=== PATIENT | female | born 1955 | race Two or more races ===

== ENCOUNTER 2019-05-09 17:16 | Emergency (ER) | payer MEDICAID ==
[~2019-05-09] VITALS: Ht 162.6 cm; Wt 94.3 kg
[~2019-05-09 17:16] MED LIST: CIPR500T5 PO; HYDR-4354 PO; HYDR1TAB GT; IBUP-1955 PO; MELO7.5T12 PO
--- NOTE | 2019-05-09 17:50 | NUR ---
PT CAME TO ER FOR CHEST PAIN SINCE YESTERDAY THAT COMES AND GOES. PT HAS HX OF RHEUMATOID ARTHRITIS FOR 13 YEARS. AAOX4. PATIENT NOT IN ANY DISTRESS. NO SOB. BREATHING EVEN AND UNLABORED. AWAITING MD MCCARTHY. WILL CONTINUE TO MONITOR.
[2019-05-09] MEDS ORDERED: PIOG1TAB7 PO (17:54)
[2019-05-09] MEDS ORDERED: CALC-1237 PO (17:54)
[2019-05-09] MEDS ORDERED: LISI1TAB27 PO (17:54)
[2019-05-09] MEDS ORDERED: LEFL20TA18 PO (17:54)
[2019-05-09 17:56] LABS: BASOPHILS % (AUTO) 0.3 % (0.0-2.0); EOSINOPHILS % (AUTO) 1.5 % (0.0-6.0); HEMATOCRIT 44 % (33-45); LYMPHOCYTES # (AUTO) 1.5 /CMM (0.8-4.8); LYMPHOCYTES % (AUTO) 26.5 % (20.0-44.0); MEAN CORPUSCULAR HGB CONC 32 g/dl (31.0-36.0); MEAN CORPUSCULAR VOLUME 82 fL (82-100); MONOCYTES # (AUTO) 0.7 /CMM (0.1-1.30); MONOCYTES % (AUTO) 12.1 % (2.0-12.0); NEUTROPHILS # (AUTO) 3.3 /CMM (1.8-8.9); NEUTROPHILS % (AUTO) 59.6 % (43.0-81.0); PLATELET COUNT (AUTO) 279 /CMM (150-450); RED BLOOD CELL COUNT(AUTO) 5.32 MIL/uL (4.0-5.2); WHITE BLOOD COUNT (AUTO) 5.5 K/uL (4.3-11.0)
[2019-05-09 18:03] LABS: CALCIUM, SERUM 9.1 mg/dL (8.5-10.1); CARBON DIOXIDE 27 mmol/L (21-32); CHLORIDE 105 mmol/L (98-107); CREATININE 0.7 mg/dL (0.6-1.3); GLUCOSE 111 mg/dL (74-106); POTASSIUM 3.6 mmol/L (3.5-5.1); SODIUM SERUM 142 mmol/L (136-145); UREA NITROGEN, BLOOD 9 mg/dL (7-18)
--- NOTE | 2019-05-09 19:23 | NUR ---
IV removed. Catheter intact and site benign. Pressure and 4x4 applied to site. No bleeding noted. Patient discharged to home in stable condition. Written and verbal after care instructions given. Patient verbalizes understanding of instruction.
[2019-05-09 19:24] VITALS: BP 127/77
== END 2019-05-09 19:25 | disposition home or self-care (01) ==
LOC: ER 17:21
DX: R07.89 Other chest pain (principal); M25.512 Pain in left shoulder; E11.9 Type 2 diabetes mellitus without complications; E78.5 Hyperlipidemia, unspecified; Z98.890 Other specified postprocedural states; Z79.899 Other long term (current) drug therapy
CPT/HCPCS: 36415; 71045-TC; 80048-TC; 84484-TC; 85025-TC